=== PATIENT | female | born 1980 | race Asian ===

== ENCOUNTER 2022-01-23 12:39 | Outpatient (CLI) | payer BC | END 2022-01-23 12:40 | disposition home or self-care (01) | LOC: CSHCT 12:39 | PROVIDERS: ATTEND Nurse Practitioner Family | DX: F07.81 Postconcussional syndrome (principal) | CPT/HCPCS: 70450 ==

== ENCOUNTER 2022-06-10 14:18 | Outpatient (CLI) | payer BC | END 2022-06-10 14:19 | disposition home or self-care (01) | LOC: CSHMAMMO 14:18 | PROVIDERS: ATTEND Nurse Practitioner Family | DX: Z12.31 Encounter for screening mammogram for malignant neoplasm of breast (principal); N64.89 Other specified disorders of breast | CPT/HCPCS: 77063; 77067 ==

== ENCOUNTER 2022-06-14 08:09 | Outpatient (CLI) | payer BC | END 2022-06-14 08:10 | disposition home or self-care (01) | LOC: CSHMAMMO 08:09 | PROVIDERS: ATTEND Nurse Practitioner Family | DX: N64.89 Other specified disorders of breast (principal) | CPT/HCPCS: G0279 ==